=== PATIENT | male | born 1980 | race Caucasian/White ===

== ENCOUNTER 2019-10-19 11:28 | Observation (INO) | payer OTHER, SELFPAY ==
[2019-10-19] VITALS (10 sets, daily range): BP systolic 144–173; BP diastolic 83–104; PULSE 81–125; RESP 17–23; TEMP 36.6–36.8; O2SAT 93–98; BMI 35.2
--- NOTE | ~2019-10-19 | US_ITS ---
EXAMINATION: US scrotum doppler DATE: 10/20/2019 14:35 INDICATION: Right testicular swelling TECHNIQUE: Testicular sonogram utilizing grayscale and Doppler COMPARISON: None. FINDINGS: The right testis measures 5.4 x 2.5 x 3.7 cm. The left testis measures 5.2 x 2.1 x 4.0 cm. Symmetric normal grayscale appearance to both testes. There is normal vascular flow to both testes. 8 mm anecho ic right epididymal cyst. The right epididymis is normal with normal vascular flow. The left epididym is is normal with normal vascular flow. There is no varicocele or hydrocele. IMPRESSION: 1. 8 mm right epididymal cyst. Otherwise unremarkable testicular ultrasound. Reviewed, dictated and finalized at location A.
--- NOTE | ~2019-10-19 | CT_ITS ---
EXAMINATION: CTA chest PE protocol DATE: 10/19/2019 17:15 INDICATION: Chest pain. Tachycardia. Prior pulmonary embolism. TECHNIQUE: Computed tomography (CT) pulmonary angiogram of the chest was performed with 100 mL Omnipa que-350 intravenous contrast. Additional 3D reconstructions utilizing coronal maximum intensity proje ction (MIP) were performed. Automated exposure control and iterative reconstruction technique were em ployed. The dose-length product was 949.70 mGy-cm. COMPARISON: 12/20/2018 FINDINGS: Excellent contrast opacification of the pulmonary arteries. There is mild streak artifact from dense contrast in the superior vena cava and right atrium. Mild to moderate scattered respiratory motion ar tifact with basilar predominance which decreases sensitivity in the basilar segmental and subsegmenta l pulmonary arteries. No definite pulmonary embolism. No pneumonia, pulmonary edema, pleural effusion or pneumothorax. Borderline heart size. No pericardial or pleural effusion. Thoracic aorta is normal in caliber with no dissection. No pathologically enlarged thoracic lymphadenopathy. Diffuse hepatic steatosis. Bilateral adrenal adenomas, the larger on the left measuring 1.6 cm which are unchanged s mario CT dated 12/14/2017 at which time it demonstrated low-attenuation. Metallic anchor at the right g lenoid likely related to prior labral repair. IMPRESSION: 1. No definite pulmonary embolism. Sensitivity decreased in the basilar segmental and subsegmental pu lmonary arteries to primarily to motion. 2. Diffuse hepatic steatosis. Reviewed, dictated and finalized at location A. IMPRESSION: 1. No definite pulmonary embolism. Sensitivity decreased in the basilar segment al and subsegmental pulmonary arteries to primarily to motion. 2. Diffuse hepatic steatosis.
--- NOTE | ~2019-10-19 | XR_ITS ---
EXAMINATION: XR chest 2V 10/19/2019 13:01 INDICATION: Chest pain. Alcohol withdrawals. PROCEDURE: 2 view chest COMPARISON: No prior studies for comparison. FINDINGS: The lungs are clear. The cardiomediastinal silhouette is within normal limits. There are no pleural effusions. There is no pneumothorax suspected. IMPRESSION: 1: NO ACUTE CARDIOPULMONARY DISEASE. Reviewed, dictated and finalized at location A.
--- NOTE | 2019-10-19 11:34 | ECG_ITS ---
Measurements Intervals [place] Rate: 125 P: 53 NM: 153 QRS: 64 QRSD: 93 T: 13 QT: 402 QTc: 580 Interpretive Statements SINUS TACHYCARDIA DELAYED PRECORDIAL R/S TRANSITION BORDERLINE ST-T WAVE ABNORMALITY- ANT/INF LEADS ABNORMAL ECG Electronically Signed On 10-19-2019 14:52:12 CDT by Coleman Andersen D.O.
--- NOTE | 2019-10-19 12:15 | PC.NURSE ---
Pt refusing straight cath at this time.
[2019-10-19] MEDS: FAMOTIDINE 20 MG/2 ML VIAL IV PUSH (12:21)
[2019-10-19] MEDS: LORAZEPAM INJ 2 MG/ML VIAL 1 MG IV PUSH ×3 (12:21→19:58)
[2019-10-19 12:43] LABS: Basophils Absolute Auto 0.1 K/mm3 (0.0-0.1); Basophils Percent Auto 0.9 % (0.2-1.2); Eosinophils Percent Auto 0.3 % (0-4.4); Hematocrit 51.4 % (42.0-52.0); Hemoglobin 18.2 g/dL (14.0-18.0); Immature Granulocyte Absolute 0.03 K/mm3 (0.00-0.031); Immature Granulocyte Percent A 0.3 % (0-0.5); Lymphocytes Percent Auto 20.6 % (18.3-44.2); Mean Corpuscular HGB Conc 35.4 g/dl (32-36); Mean Corpuscular Hemoglobin 32.4 pg (26-34); Mean Corpuscular Volume 91.5 fl (80-100); Mean Platelet Volume 9.7 fl (7.4-10.4); Monocytes Absolute Auto 0.7 K/mm3 (0.1-0.6); Monocytes Percent Auto 6.6 % (2.6-8.5); Neutrophils Absolute Auto 7.6 K/mm3 (1.3-6.7); Neutrophils Percent Auto 71.3 % (45.5-73.1); Platelet Count Result 349 k/mm3 (150-375); Red Blood Count 5.62 M/mm3 (4.6-6.20); White Blood Count 10.7 K/mm3 (4.5-10.0)
[2019-10-19] MEDS: PROCHLORPERAZINE EDISYLATE 10 MG/2 ML VIAL IV PUSH (12:48)
[2019-10-19 12:55] LABS: Alanine Aminotransferase 241 U/L (4-50); Alkaline Phosphatase 90 U/L (38-126); Aspartate Amino Transferase 168 U/L (17-59); Bilirubin,Total 0.6 mg/dL (0.2-1.3); Blood Urea Nitrogen 5 mg/dL (9-20); Calcium 9.7 mg/dL (8.4-10.2); Carbon Dioxide 23 mmol/L (22-30); Chloride 98 mmol/L (98-107); Estimated CRCL calculation 166 ml/min; Estimated Glomerular Filt Rate > 60; Glucose 146 mg/dL (75-110); Lipase 102 U/L (23-300); Potassium 3.3 mmol/L (3.4-5.0); Sodium 141 mmol/L (137-145)
[2019-10-19 12:56] LABS: INR 1.1; Partial Thromboplastin Time 28.1 SECONDS (22.3-36.8); Prothrombin Time 13.8 Seconds (11.1-14.7)
[2019-10-19 13:07] LABS: Ethanol 167 mg/dL (<10); Troponin I < 0.012 ng/mL (0.000-0.034)
--- NOTE | 2019-10-19 13:26 | ED.CHESTPAIN ---
HPI - Chest Pain General Chief Complaint: Chest Pain Stated Complaint: Abdominal pain Time Seen by Provider: 10/19/19 12:11 Source: patient Mode of arrival: ambulatory Limitations: no limitations History of Present Illness HPI narrative: This is a 39-year-old male that presents the emergency department for withdrawal symptoms that started today. Reports he has had problems with alcohol for the last 10 years. Reports he goes out on benders. Reports over the last 5 days he has been drinking a pint of vodka daily. Reports this morning he started to have chest pain, nausea and vomiting. Also reports anxiety. Denies fever or cough. Related Data Home Medications Medication Instructions Recorded Confirmed lorazepam 0.5 mg PO BID PRN 10/19/19 sertraline [Zoloft] 150 mg PO DAILY 10/19/19 trazodone 100 mg PO HS 10/19/19 Allergies Allergy/AdvReac Type Severity Reaction Status Date / Time lisinopril Allergy Unknown Unknown Verified 10/19/19 12:39 quetiapine Allergy Unknown Unknown Verified 07/31/18 09:23 Review of Systems Review of Systems: Narrative: CONSTITUTIONAL: Denies fever CARDIOVASCULAR: Reports chest pain RESPIRATORY: Denies cough or dyspnea. GASTROINTESTINAL: Reports abdominal pain, nausea, vomiting All systems reviewed & are unremarkable except as noted in HPI and below PMFSH Past Medical History Medical History (Updated 10/19/19 @ 17:54 by Nelda Bear PA-C) History of alcohol abuse History of depression Family History Family History (Updated 11/26/15 @ 23:19 by DOCTOR UNKNOWN) Father Hypertension Family history of diabetes mellitus in first degree relative Social History Social History (Updated 10/19/19 @ 17:48 by Nelda Bear PA-C) Alcohol intake: current Substance use: never Gender identity (if verbalized by the patient): Male Exam Narrative: Exam Narrative: GENERAL: Well-appearing, obese, and in no acute distress. HEAD: Normocephalic, atraumatic. EYES: EOMI. ENT: Nares clear, no rhinorrhea or epistaxis. Mucous membranes moist. Oropharynx without tonsillar hypertrophy exudate or other lesions. Bilateral TMs pearly calderon non-bulging NECK: Supple. No adenopathy or masses. CHEST: Clear to auscultation. No respiratory distress. No wheezes rales or rhonchi HEART: Regular rate and rhythm. No murmur heard. Normal peripheral pulses. ABDOMEN: Soft, nontender, nondistended, normal active bowel sounds. EXTREMITIES: Normal range of motion. No edema. SKIN: Warm, dry, no rash. NEURO: No focal deficits. Alert and oriented x3. PSYCH: Anxious Course Consultations Consultation #1: Spoke with hospitalist about patient and work-up who accepts admission Date: 10/19/19 Time: : Vital Signs Vital signs: Vital Signs Temperature 98.2 F 10/19/19 12:36 Pulse Rate 125 H 10/19/19 12:36 Respiratory Rate 17 10/19/19 12:36 Blood Pressure 162/97 H 10/19/19 12:36 Pulse Oximetry 97 10/19/19 12:36 Temperature 98.2 F 10/19/19 12:36 Pulse Rate 98 10/19/19 17:27 Respiratory Rate 17 10/19/19 17:27 Blood Pressure 144/83 H 10/19/19 17:27 Pulse Oximetry 97 10/19/19 17:27 MDM - Chest Pain MDM Narrative Medical decision making narrative: Patient presents to the emergency department for alcohol withdrawal. Has been seen here for same in the past multiple times. Patient is afebrile and nontoxic-appearing. Tachycardic and hypertensive upon arrival. This improved with IV fluids and Ativan administration. CBC with mild leukocytosis with white blood cell count of 10.7. Also shows hemoconcentration. Metabolic panel with mild hypokalemia. Patient given a dose of potassium in the ED. Liver enzymes are also elevated, has history of this in the past. Does have fatty liver disease. Was reporting some chest discomfort which seems to be GERD. EKG without concerning ST changes. Baseline and 3-hour troponin is negative. Patient does have a prolonged QT on his EKG. D-dime
--- NOTE | 2019-10-19 13:48 | PC.NURSE ---
RN at bedside, pt snoring at this time.
--- NOTE | 2019-10-19 13:54 | PC.NURSE ---
RN notified MEAGHAN Diana that patient is snoring. OK to hold Ativan at this time.
[2019-10-19] MEDS: SODIUM CHLORIDE 0.9% IV 1,000 ML 999 ML IV CONT (14:56)
[2019-10-19 15:50] LABS: Add Urine Microscopic? YES; Appearance Urine Clear (Clear); Bilirubin Urine Negative (Negative); Blood Urine Negative (Negative); Color Urine Yellow (Yellow); Glucose Urine UA Negative (Negative); Ketones Urine 1+ mg/dL (Negative); Leukocyte Esterase Ur Negative LEU/UL (Negative); Mucus Urine Rare /lpf; Nitrate Urine Negative (Negative); Protein Urine Negative (Negative); RBC Urine 0-2 /hpf (0-2); Squamous Epithelial Cell Urine Rare /hpf (Few); Urobilinogen Urine Negative mg/dL (<2.0); WBC Urine 0-3 /hpf
[2019-10-19 15:56] LABS: Troponin I < 0.012 ng/mL (0.000-0.034)
[2019-10-19 16:04] LABS: Barbiturate Screen Urine Negative (Negative); Benzodiazepines Screen Urine Negative (Negative)
[2019-10-19 16:05] LABS: Amphetamine Screen Urine Negative (Negative); Cannabinoid Screen Urine Negative (Negative); Cocaine Screen Urine Negative (Negative); Methadone Screen Urine Negative (Negative); Opiate Screen Urine Negative (Negative); Phencyclidine Screen Urine Negative (Negative)
[2019-10-19] MEDS: POTASSIUM CHLORIDE 20 MEQ TABLET PO (16:24)
[2019-10-19 16:36] LABS: D Dimer 0.67 ug/mL (<0.48)
[2019-10-19] MEDS: CHLORDIAZEPOXIDE 25 MG CAPSULE PO (18:37)
[2019-10-19] MEDS: PANTOPRAZOLE SODIUM IV 40 MG VIAL IV PUSH (18:37)
[2019-10-19] MEDS: SODIUM CHLORIDE 0.9% IV 1,000 ML 125 ML IV CONT (18:38)
[2019-10-19 18:43] LABS: Troponin I < 0.012 ng/mL (0.000-0.034)
--- NOTE | 2019-10-19 19:31 | PM.IMHP ---
H&P: HPI History of Present Illness Chief complaint: Alcohol withdrawal Narrative: This is a morbidly obese 39 year old male with known depression who presented to the hospital with a complaint of alcohol withdrawal symptoms including anxiety, shakiness, nausea and vomiting. While in the ER he started to develope midsternal chest pain that lasted about 10 minutes in duration. He denied any associated symptoms with his chest pain. The patient has been drinking alcohol since he was a teenager but has had issues with binge drinking over the past ten years. He admits to binge drinking a pint of vodka daily over the past 5 days. He desires to stop drinking. Today he has been feeling very anxious and shaky. He reports diaphoresis, nausea and vomiting. He denies any visual or auditory hallucinations. He has never had a withdrawal seizure before. He denies any fevers, chills, cough, shortness of breath, abdominal pain, dysuria, hematuria, diarrhea or leg redness or pain. He believes he might have some leg swelling. The patient was evaluated in the ER and CTA chest was peformed and was negative for acute pulmonary embolism. We have been asked to admit the patient for alcohol withdrawal. No other complaints. Review of Systems Review of Systems: All systems reviewed & are unremarkable except as noted in HPI and below PMFSH Past Medical History Medical History (Updated 10/19/19 @ 21:02 by Christian Torres MD) History of alcohol abuse History of depression Surgical History Surgical History (Updated 10/19/19 @ 19:34 by Christian Torres MD) Hx of shoulder surgery Family History Family History (Updated 10/19/19 @ 19:36 by Anum Cunningham RN) Father Family history of diabetes mellitus in first degree relative Hypertension Mother Anxiety Social History Social History (Updated 10/19/19 @ 19:35 by Christian Torres MD) Smoking packs per day: 0.5 Smoking cigarettes per day: 10.0 Years smoked: 18 Smoking pack-years: 9.00 Smoking status: Current every day smoker Tobacco type: cigarettes Alcohol intake: current Drinks per week: 42 Substance use: never Gender identity (if verbalized by the patient): Male Spiritual care concerns: No Meds Home Medications and Allergies Home Medications Medication Instructions Recorded Confirmed Type lorazepam 0.5 mg PO BID PRN 10/19/19 10/19/19 History sertraline [Zoloft] 150 mg PO DAILY 10/19/19 10/19/19 History trazodone 100 mg PO HS 10/19/19 10/19/19 History Allergies Allergy/AdvReac Type Severity Reaction Status Date / Time lisinopril Allergy Unknown Unknown Verified 10/19/19 12:39 quetiapine Allergy Unknown Unknown Verified 07/31/18 09:23 Vital Signs Vital Signs - 24 hr 10/19/19 12:36 10/19/19 14:59 10/19/19 16:25 Temperature 36.8 C Pulse Rate 125 H 116 H 110 H Respiratory Rate 17 23 H 18 Blood Pressure 162/97 H 162/104 H 161/95 H Pulse Oximetry 97 93 95 10/19/19 17:27 10/19/19 18:56 Temperature Pulse Rate 98 107 H Respiratory Rate 17 20 Blood Pressure 144/83 H 173/86 H Pulse Oximetry 97 97 Exam Const: General: cooperative, alert, awake and in distress mild Nutritional Appearance: obese morbidly obese Orientation/consciousness: patient oriented x3 HENMT: Head: normal to inspection General nose exam: Normal external nose present Face and sinus: normal facial exam Mouth: Yes Normal oral and palatal mucosa present and Yes oropharynx normal Eyes: Pupils: Equal, round and reactive pupils present EOM: EOMs intact bilaterally Neck: Neck: supple and no JVD Thyroid: thyroid normal Lymphatic: lymphadenopathy not noted Resp: Effort & Inspection: normal respiratory effort Auscultation: clear to auscultation bilaterally Cardio: Rate: tachycardic Rhythm: regular rhythm Heart sounds: no murmurs GI: Inspection: normal to inspection and obesity GI Palp: No abdominal tenderness Auscultation: normal bowel sounds Rectal Exam
--- NOTE | 2019-10-19 19:41 | ADMGEN ---
This patient, Abram Rodriguez, was admitted to IMU Room 201-01 on 10/19/2019 at 1930. Patient/family oriented to hospital policies and general routines including ID bracelet, bed and alarms, visiting hours, pain management, procedures, bathroom and other care routines, personal items, smoking policy, room service/diet, and visiting hours. Valuables list has been completed. Information on how to activate the Rapid Response Team has been discussed. Patient/Family are encouraged to report perceived risks to care and to ask questions if they do not understand what they are told or what they should do.
[2019-10-20] VITALS (11 sets, daily range): BP systolic 115–176; BP diastolic 103–106; PULSE 69–117; RESP 12–20; TEMP 35.8–36.4; O2SAT 95–98
[2019-10-20] MEDS: CHLORDIAZEPOXIDE 25 MG CAPSULE PO ×3 (00:09→13:20)
[2019-10-20] MEDS: SODIUM CHLORIDE 0.9% IV 1,000 ML 125 ML IV CONT ×2 (03:51→09:40)
[2019-10-20] MEDS: LORAZEPAM INJ 2 MG/ML VIAL 1 MG IV PUSH ×3 (04:00→15:19)
[2019-10-20 04:51] LABS: Basophils Absolute Auto 0.1 K/mm3 (0.0-0.1); Basophils Percent Auto 1.2 % (0.2-1.2); Eosinophils Absolute Auto 0.1 K/mm3 (0-0.3); Eosinophils Percent Auto 1.8 % (0-4.4); Hematocrit 45.5 % (42.0-52.0); Hemoglobin 15.9 g/dL (14.0-18.0); Immature Granulocyte Absolute 0.01 K/mm3 (0.00-0.031); Immature Granulocyte Percent A 0.1 % (0-0.5); Lymphocytes Absolute Auto 3.16 K/mm3 (0.9-3.2); Lymphocytes Percent Auto 43.5 % (18.3-44.2); Mean Corpuscular HGB Conc 34.9 g/dl (32-36); Mean Corpuscular Hemoglobin 32.4 pg (26-34); Mean Corpuscular Volume 92.7 fl (80-100); Mean Platelet Volume 9.5 fl (7.4-10.4); Monocytes Absolute Auto 0.6 K/mm3 (0.1-0.6); Monocytes Percent Auto 8.1 % (2.6-8.5); Neutrophils Absolute Auto 3.3 K/mm3 (1.3-6.7); Neutrophils Percent Auto 45.3 % (45.5-73.1); Platelet Count Result 258 k/mm3 (150-375); Red Blood Count 4.91 M/mm3 (4.6-6.20); Red Cell Distribution Width 12.9 % (11.5-14.5); White Blood Count 7.3 K/mm3 (4.5-10.0)
[2019-10-20 05:03] LABS: Blood Urea Nitrogen 8 mg/dL (9-20); Calcium 8.9 mg/dL (8.4-10.2); Carbon Dioxide 26 mmol/L (22-30); Chloride 104 mmol/L (98-107); Estimated CRCL calculation 146 ml/min; Estimated Glomerular Filt Rate > 60; Glucose 121 mg/dL (75-110); Magnesium 2.4 mg/dL (1.6-2.3); Potassium 3.7 mmol/L (3.4-5.0); Sodium 137 mmol/L (137-145)
[2019-10-20] MEDS: THIAMINE HCL 200 MG/2 ML VIAL 100 MG IV PUSH (09:39)
--- NOTE | 2019-10-21 21:06 | PM.DS ---
DS: Admitting Diagnosis Admitting Diagnosis Admitting Diagnosis: Alcohol dependence with withdrawal, uncomplicated DS: Discharge Diagnosis Discharge Diagnosis (1) Alcohol withdrawal: Qualifiers: Complication of substance-induced condition: uncomplicated Qualified Code(s): F10.230 - Alcohol dependence with withdrawal, uncomplicated Code(s): F10.239 - Alcohol dependence with withdrawal, unspecified Status: Acute Assessment and Plan: l. Ativan withdrawal prophylaxis. Thiamine IV daily. Social service saw patient and gave him information on rehab which she had done in the distant past. he was tolerating a diet well and he had never had a history DTs or alcohol withdrawal seizures. Was discharged with 25 mg of Librium to take q.6 hours p.r.n. taper off and # 20. (2) Chest pain: Qualifiers: Chest pain type: unspecified Qualified Code(s): R07.9 - Chest pain, unspecified Code(s): R07.9 - Chest pain, unspecified Status: Acute Assessment and Plan: r/o ACS - chest pain was only 10 minutes in duration. Atypical and probably related to withdrawal syndrome. EKG no ischemic changes and troponins negative should follow-up with primary care for recheck on blood pressure (3) History of depression: Code(s): Z86.59 - Personal history of other mental and behavioral disorders Status: Chronic Assessment and Plan: continue home medication with Zoloft 150 daily and trazodone 100 HS (4) Elevated LFTs: Code(s): R79.89 - Other specified abnormal findings of blood chemistry Status: Acute Assessment and Plan: mild elevation of LFTs thought secondary to alcohol or fatty infiltration and should have repeat metabolic profile within 1 week off of alcohol DS: Summary Hospital Course Hospital Course: 39-year-old white male history of alcohol abuse and binge drinking presented to ER with some agitation and atypical chest pain. Admitted for observation. Hydrated and serial enzymes were negative. Seen by social service given information on alcohol rehab programs and discharge with 20 of the 25 mg Librium to taper as needed for withdrawal Time Spent with Patient Time attestation: Total time spent providing and/or coordinating discharge services: 35 minutes Exam Narrative: Exam Narrative: condition on discharge blood pressure 150/100 pulse is 100 afebrile saturating 95% on room air lungs clear cv rrr slight tachy abd soft and nontender Neuro alert pleasant and cooperative with no focal deficits Discharge Plan Discharge Attending physician on discharge: Ramon Ansari Consulting providers: Nelda Bear ; Christian Torres ; Sarthak Kendall ; Toney Alvarenga ; Coleman Andersen Discharging Clinician: Ramon Ansari Patient Disposition: Home, Self-Care Activity: as tolerated Diet: regular Discharge Instructions: RTW Thursday 10/26 Patient Instructions: Antibiotic Form, How to Stop Smoking (DC), Abuse of Alcohol (DC), Alcohol Withdrawal (DC) Stand Alone Forms: General Discharge Information Follow-up/Referrals: PHYSICIAN,BLADE BALANCER [Primary Care Provider] - 2 Weeks Discharge Medications: New chlordiazepoxide HCl 25 mg Capsule 25 mg PO Q6HR Qty: 20 RF: 0 Continued sertraline [Zoloft] 100 mg Tablet 150 mg PO DAILY RF: 0 trazodone 100 mg Tablet 100 mg PO HS RF: 0 Discontinued lorazepam 0.5 mg Tablet 0.5 mg PO BID PRN (Reason: Anxiety) RF: 0 Other Ambulatory Orders: Comprehensive Metabolic Panel (Routine) Timeframe: 20191027 Location: Determined by Patient Ordered By: Ramon Ansari Date of admission: 10/19/19 18:23 Primary Care Provider: PHYSICIAN,BLADE BALANCER Admitting Provider: Ricardo Meza Discharge Date/Time: 10/20/19 16:45 Attending physician on admission: Ramon Ansari Condition: Stable Quality VTE Prophylaxis VTE prophylaxis: mechanical ordered
== END 2019-10-20 16:45 | disposition home or self-care (01) ==
LOC: ANHED 17:54 → ANHIMU 18:30
PROVIDERS: Family Medicine; Physician Assistant; Admitting Provider Family Medicine; Emergency Provider Emergency Medicine; Visit Provider Internal Medicine
DX: F10.239 Alcohol dependence with withdrawal, unspecified (principal); Y90.6 Blood alcohol level of 120-199 mg/100 ml; R07.89 Other chest pain; F17.210 Nicotine dependence, cigarettes, uncomplicated; F32.9 Major depressive disorder, single episode, unspecified; R79.89 Other specified abnormal findings of blood chemistry; E66.9 Obesity, unspecified; Z68.35 Body mass index [BMI] 35.0-35.9, adult; N50.89 Other specified disorders of the male genital organs; Z79.899 Other long term (current) drug therapy
CPT/HCPCS: 36415; 71046; 71275; 76870; 80048; 80053; 80307; 81001; 83690; 83735; 84484; 85025; 85380; 85610; 85730; 93005; 93976; 96361; 96365; 96366; 96374; 96375; 96376; 99285; A9270; C9113; G0378; J0780; J2060; J3411; J3475; J7030; J7120; Q9967

== ENCOUNTER 2020-07-29 01:22 | Observation (INO) | payer MEDICAID, SELFPAY ==
[2020-07-29] VITALS (13 sets, daily range): BP systolic 130–183; BP diastolic 86–113; PULSE 87–135; RESP 15–23; TEMP 36.8–37.4; O2SAT 94–98; BMI 33.7
--- NOTE | 2020-07-29 01:30 | ED.ALCOHOL ---
HPI - Alcohol General Chief Complaint: Alcohol Stated Complaint: possible alcohol poisoning Time Seen by Provider: 07/29/20 01:30 History of Present Illness HPI narrative: History limited by alcohol intoxication. 40 yo w/ h/o alcohol abuse and with drawal presents to the ED with epigastric pain. He reports that he drank 4 bottles of vodka today and 4 yesterday. He has severe burning pain radiating into his chest. He says that he is dying from alcohol poisoning , but also says that he is in withdrawal. Related Data Home Medications Medication Instructions Recorded Confirmed sertraline [Zoloft] 150 mg PO DAILY 10/19/19 10/19/19 trazodone 100 mg PO HS 10/19/19 10/19/19 Allergies Allergy/AdvReac Type Severity Reaction Status Date / Time lisinopril Allergy Unknown Unknown Verified 07/29/20 01:39 quetiapine Allergy Unknown Unknown Verified 07/29/20 01:39 Review of Systems Review of Systems: All systems reviewed & are unremarkable except as noted in HPI and below Constitutional: Constitutional: Denies fever(s) ENT: Reports system reviewed and no additional complaints, except as documented Cardiovascular: Cardiovascular: Reports chest pain Respiratory: Respiratory: Denies dyspnea Gastrointestinal: Gastrointestinal: Reports abdominal pain and Reports nausea Neurologic: Reports system reviewed and no additional complaints, except as documented [facility] Past Medical History Medical History History of alcohol abuse History of depression Surgical History Surgical History Hx of shoulder surgery Family History Family History Father Family history of diabetes mellitus in first degree relative Hypertension Mother Anxiety Social History Social History Smoking packs per day: 0.5 Smoking cigarettes per day: 10.0 Years smoked: 18 Smoking pack-years: 9.00 Smoking status: Current every day smoker Tobacco type: cigarettes Alcohol intake: current Drinks per week: 42 Substance use: never Gender identity (if verbalized by the patient): Male Spiritual care concerns: No Exam Const: General: no acute distress and alert Nutritional Appearance: obese Orientation/consciousness: patient oriented x3 HENMT: Mouth: Yes dry mucous membranes Chest: Chest palpation & inspection: no tenderness Resp: Effort & Inspection: normal respiratory effort Auscultation: clear to auscultation bilaterally Cardio: Rate: tachycardic Rhythm: regular rhythm GI: Inspection: non-distended GI Palp: Yes Soft to palpation, Yes Tenderness to palpation present (GI) (epigastric) and No Guarding due to palpation present (GI) Skin: General skin exam: normal color Neuro: General: patient oriented x3, moves all extremities, no focal motor deficits and CN's II-XI intact bilaterally Speech: normal speech Extrem: General: normal to inspection Course Vital Signs Vital signs: Vital Signs Temperature 36.9 C 07/29/20 01:32 Pulse Rate 124 H 07/29/20 01:32 Respiratory Rate 20 07/29/20 01:32 Blood Pressure 138/96 H 07/29/20 01:32 Pulse Oximetry 97 07/29/20 01:32 Temperature 36.9 C 07/29/20 01:32 Pulse Rate 135 H 07/29/20 04:01 Respiratory Rate 18 07/29/20 04:01 Blood Pressure 152/89 H 07/29/20 04:01 Pulse Oximetry 98 07/29/20 04:01 MDM - Alcohol MDM Narrative Medical decision making narrative: 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 Lipase negative. Patient refused abdominal CT. CBC abnormal, most likely 2/2 concentration. Despite 3 liters of NS, pain medications, librium he is ersistently tachycardic. I will plan to admit for observation. Medical Records Attestation: I reviewed the patient's medical records. Lab Data Attestation: I reviewed the patient's
[2020-07-29] MEDS: PANTOPRAZOLE SODIUM IV 40 MG VIAL IV PUSH ×3 (02:05→20:09)
[2020-07-29] MEDS: ONDANSETRON INJ 4 MG/2 ML VIAL IV PUSH ×4 (02:07→20:30)
[2020-07-29] MEDS: LIDOCAINE HCL 2% VISC SOLN 15 ML UDC 20 ML PO (02:07)
[2020-07-29] MEDS: MAG HYDROX/AL HYDROX/SIMETH 30 ML UDC PO (02:07)
[2020-07-29] MEDS: SODIUM CHLORIDE 0.9% IV 1,000 ML 999 ML IV CONT (02:07)
[2020-07-29 02:17] LABS: Basophils Absolute Auto 0.1 K/mm3 (0.0-0.1); Basophils Percent Auto 0.6 % (0.2-1.2); Hematocrit 52.1 % (42.0-52.0); Hemoglobin 18.5 g/dL (14.0-18.0); Immature Granulocyte Absolute 0.07 K/mm3 (0.00-0.031); Immature Granulocyte Percent A 0.3 % (0-0.5); Lymphocytes Absolute Auto 2.92 K/mm3 (0.9-3.2); Lymphocytes Percent Auto 13.9 % (18.3-44.2); Mean Corpuscular HGB Conc 35.5 g/dl (32-36); Mean Corpuscular Hemoglobin 30.4 pg (26-34); Mean Corpuscular Volume 85.7 fl (80-100); Monocytes Absolute Auto 0.7 K/mm3 (0.1-0.6); Monocytes Percent Auto 3.2 % (2.6-8.5); Neutrophils Absolute Auto 17.2 K/mm3 (1.3-6.7); Platelet Count Result 354 k/mm3 (150-375); Red Blood Count 6.08 M/mm3 (4.6-6.20)
[2020-07-29 02:37] LABS: Alanine Aminotransferase 43 U/L (4-50); Albumin Level 4.8 g/dL (3.5-5.1); Alkaline Phosphatase 60 U/L (38-126); Anion Gap 17 mmol/L (8-16); Aspartate Amino Transferase 60 U/L (17-59); Bilirubin,Total 0.7 mg/dL (0.2-1.3); Blood Urea Nitrogen 19 mg/dL (9-20); Calcium 8.4 mg/dL (8.4-10.2); Carbon Dioxide 23 mmol/L (22-30); Chloride 102 mmol/L (98-107); Estimated CRCL calculation 106 ml/min; Estimated Glomerular Filt Rate > 60; Ethanol 164 mg/dL (<10); Glucose 110 mg/dL (75-110); Lipase 68 U/L (23-300); Potassium 3.9 mmol/L (3.4-5.0); Sodium 142 mmol/L (137-145)
[2020-07-29] MEDS: MORPHINE SULFATE (*CRX) 4 MG/ML INJ IV PUSH (02:39)
--- NOTE | 2020-07-29 02:39 | ECG_ITS ---
Measurements Intervals [place] Rate: 128 P: 13 NH: 162 QRS: 11 QRSD: 84 T: 54 QT: 319 QTc: 466 Interpretive Statements SINUS TACHYCARDIA DELAYED PRECORDIAL R/S TRANSITION BASELINE ARTIFACT- I, II, III, AVR, AVL ABNORMAL ECG Electronically Signed On 07-29-2020 7:15:08 CDT by Coleman Andersen D.O.
[2020-07-29] MEDS: chlordiazePOXIDE (*CRX) 25 MG CAPSULE PO ×2 (03:00→06:43)
[2020-07-29] MEDS: SODIUM CHLORIDE 0.9% IV 2,000 ML 999 ML IV CONT (03:49)
[2020-07-29 03:52] LABS: Troponin I < 0.012 ng/mL (0.000-0.034)
--- NOTE | 2020-07-29 04:02 | PC.NURSE ---
Pt frequently asking for a benzo or diazepam for his abd discomfort. Pt has had no vomiting during ED visit.
[2020-07-29] MEDS: PROMETHAZINE HCL 25 MG/ML AMPUL 12.5 MG IV PUSH (05:38)
--- NOTE | 2020-07-29 05:42 | PC.NURSE ---
0520 Pt starts to have some vomiting. EDP informed. Haldol is ordered. Medication taken to pt and he recalls he has an allergy to the medication. Phenergan is then ordered and given.
--- NOTE | 2020-07-29 06:26 | ADMIMU ---
This patient, Abram Rodriguez, was admitted to IMU status, and placed in Intensive Care Unit-1. Patient/family oriented to hospital policies and general routines including ID bracelet, bed and alarms, visiting hours, pain management, procedures, bathroom and other care routines, personal items, smoking policy, room service/diet, and visiting hours. Valuables list has been completed. Information on how to activate the Rapid Response Team has been discussed. Patient/Family are encouraged to report perceived risks to care and to ask questions if they do not understand what they are told or what they should do.
[2020-07-29] MEDS: LORazepam INJ (*CRX) 2 MG/ML VIAL 1 MG IV PUSH ×6 (07:52→22:07)
[2020-07-29] MEDS: LACTATED RINGERS 1,000 ML 125 ML IV CONT ×2 (08:13→16:02)
[2020-07-29] MEDS: THIAMINE HCL INJ 100 MG, FOLIC ACID INJ 1 MG, MULTIVITAMINS-12 INJ VIAL 1 5 ML, MULTIVI... 125 MG IV CONT (08:13)
--- NOTE | 2020-07-29 10:28 | PM.IMHP ---
H&P: HPI History of Present Illness Date/Time: 07/29/20 10:28 PATIENT IS IN OBSERVATION STATUS Chief Complaint: I wanted to stop drinking Narrative: 40-year-old male history of alcoholism, depression and hypertension who presents to the emergency room intoxicated with desire to stop drinking. Patient states ?I am an alcoholic?. He has been drinking heavily since age 23. He has never had a withdrawal seizure that he is aware of but has woken up with blood in his mouth at times. When he stops drinking, he gets tremors but has never had hallucinations. Did attend alcohol rehab about 2-3 years ago. Normally drinks 1.5 to 2 pt of vodka a day when he drinks. His longest sobriety was 6 months that ended just recently. He states that he had issues at work and with an ex-girlfriend. He had been sober for 6 months but began to drink on July 26. He was drinking up to 4 pt of vodka a day the past few days. No oral intake. On the evening prior to admission he developed nausea and vomiting. He is having dry heaves. He had an episode of hematemesis at home but has not had that here. He has had nausea vomiting since admission that is been mostly bilious. He states his urine output has been poor over the past few days and has not voided since being here. He also has burning in his chest as well as chest and abdominal pain that is constant. This is been since arrival. He has had this discomfort before but usually controlled with alcohol. He denies any history of drug use. No DUIs. He is self-employed. He has been out of his sertraline, Crestor and HCTZ for the past few weeks. Patient was inebriated on admission. He states to me this morning that he presented to the emergency room because he wanted to stop drinking. In the Emergency room, he was tachycardic at 135. He was hypertensive. He was given Haldol once and Librium once. Was started on Protonix. Zofran and Phenergan given. Mylanta and lidocaine given for his stomach. He was admitted for further care. Patient feels better today. Does have odynophagia but no dysphagia. Denies any recent fever chills. No vision changes. No recent dysuria or hematuria. He feels weak all over but no numbness or tingling in his extremities. No history of strokes. He has noted his weight has increased since he is drinking. His mood has been stable and he denies any suicidal homicidal ideation. He does feel anxious today. Review of Systems Review of Systems: All systems reviewed & are unremarkable except as noted in HPI and below PMFSH Past Medical History Medical History (Updated 08/01/20 @ 13:25 by Larry Johnson MD) Essential hypertension, benign History of alcohol abuse History of depression Hyperlipidemia Surgical History Surgical History Hx of shoulder surgery Family History Family History Father Family history of diabetes mellitus in first degree relative Hypertension Acute myocardial infarction, Onset Age: 38 Mother Anxiety Social History Social History Social History: Alcohol use as mentioned above. No history of drug use. Smokes a pack a cigarettes per week. He lives alone. He is a full code. He nominated his mom Vinnie Garibay to be the individual would make medical decisions for him if he is unable. He is self-employed Smoking packs per day: 1 Smoking cigarettes per day: 20.0 Years smoked: 2,001 Smoking pack-years: 2001.00 Smoking status: Current some day smoker Tobacco type: cigarettes Alcohol intake: current Drinks per week: 42 Substance use: never Gender identity (if verbalized by the patient): Male Sexual Orientation (if Verbalized by the Patient): Straight or Heterosexual Spiritual care concerns: No Meds Home Medications and Allergies Home Medications
[2020-07-29] MEDS: FOLIC ACID 1 MG/0.2 ML INJ IV PUSH (11:08)
[2020-07-29] MEDS: chlordiazePOXIDE (*CRX) 25 MG CAPSULE 50 MG PO ×2 (11:22→18:48)
[2020-07-29] MEDS: METOPROLOL TARTRATE 12.5 MG TABLET PO ×2 (13:49→20:09)
[2020-07-29] MEDS: THIAMINE HCL 200 MG/2 ML VIAL 100 MG IV PUSH (13:50)
[2020-07-29] MEDS: SUCRALFATE SUSP 100 MG/ML 10 ML UDC 1000 MG PO ×3 (13:50→20:10)
[2020-07-30] VITALS (15 sets, daily range): BP systolic 121–145; BP diastolic 69–101; PULSE 68–118; RESP 14–22; TEMP 36.3–37.1; O2SAT 92–99
[2020-07-30] MEDS: LACTATED RINGERS 1,000 ML 125 ML IV CONT ×4 (00:05→20:54)
[2020-07-30] MEDS: chlordiazePOXIDE (*CRX) 25 MG CAPSULE 50 MG PO ×4 (00:06→17:53)
[2020-07-30] MEDS: LORazepam INJ (*CRX) 2 MG/ML VIAL 1 MG IV PUSH ×10 (00:07→22:25)
[2020-07-30] MEDS: ONDANSETRON INJ 4 MG/2 ML VIAL IV PUSH ×6 (04:01→20:58)
[2020-07-30 04:20] LABS: Basophils Absolute Auto 0.1 K/mm3 (0.0-0.1); Basophils Percent Auto 0.9 % (0.2-1.2); Eosinophils Absolute Auto 0.1 K/mm3 (0-0.3); Eosinophils Percent Auto 0.5 % (0-4.4); Hematocrit 42.6 % (42.0-52.0); Hemoglobin 14.9 g/dL (14.0-18.0); Immature Granulocyte Absolute 0.02 K/mm3 (0.00-0.031); Immature Granulocyte Percent A 0.2 % (0-0.5); Lymphocytes Absolute Auto 4.17 K/mm3 (0.9-3.2); Lymphocytes Percent Auto 45.3 % (18.3-44.2); Mean Corpuscular Hemoglobin 30.8 pg (26-34); Mean Platelet Volume 9.4 fl (7.4-10.4); Monocytes Absolute Auto 0.7 K/mm3 (0.1-0.6); Monocytes Percent Auto 7.4 % (2.6-8.5); Neutrophils Absolute Auto 4.2 K/mm3 (1.3-6.7); Neutrophils Percent Auto 45.7 % (45.5-73.1); Platelet Count Result 202 k/mm3 (150-375); Red Blood Count 4.84 M/mm3 (4.6-6.20); Red Cell Distribution Width 12.7 % (11.5-14.5); White Blood Count 9.2 K/mm3 (4.5-10.0)
[2020-07-30 04:29] LABS: Ammonia < 9 umol/L (9-30)
[2020-07-30 04:32] LABS: Partial Thromboplastin Time 30.2 SECONDS (22.3-36.8); Prothrombin Time 14.2 Seconds (11.1-14.7)
[2020-07-30 04:34] LABS: Alanine Aminotransferase 35 U/L (4-50); Albumin Level 3.8 g/dL (3.5-5.1); Alkaline Phosphatase 40 U/L (38-126); Anion Gap 5 mmol/L (8-16); Aspartate Amino Transferase 55 U/L (17-59); Bilirubin,Total 1.7 mg/dL (0.2-1.3); Blood Urea Nitrogen 12 mg/dL (9-20); Calcium 8.1 mg/dL (8.4-10.2); Carbon Dioxide 31 mmol/L (22-30); Chloride 106 mmol/L (98-107); Estimated CRCL calculation 105 ml/min; Estimated Glomerular Filt Rate > 60; Glucose 93 mg/dL (75-110); Lipase 97 U/L (23-300); Potassium 3.6 mmol/L (3.4-5.0); Sodium 142 mmol/L (137-145)
[2020-07-30] MEDS: SUCRALFATE SUSP 100 MG/ML 10 ML UDC 1000 MG PO ×4 (06:07→20:30)
[2020-07-30] MEDS: PANTOPRAZOLE SODIUM IV 40 MG VIAL IV PUSH ×2 (08:07→20:30)
[2020-07-30] MEDS: FOLIC ACID 1 MG/0.2 ML INJ IV PUSH (08:08)
[2020-07-30] MEDS: THIAMINE HCL 200 MG/2 ML VIAL 100 MG IV PUSH (08:08)
[2020-07-30] MEDS: MULTIVITAMINS THERAPEUTIC TAB (*BKC) 1 TABLET PO (08:08)
[2020-07-30] MEDS: METOPROLOL TARTRATE 12.5 MG TABLET PO ×2 (08:08→20:30)
--- NOTE | 2020-07-30 15:13 | PC.NURSE ---
This patient, Abram Rodriguez, was received from ICU 1 on 07/30/20 at 1513. Patient/family oriented to unit policies and routines. Report received from DAVID Mendez.
--- NOTE | 2020-07-30 15:24 | PC.NURSE ---
Patient downgraded to medical status, sent to [phone] via wheelchair and fluids restarted in room, report given to DAVID Spaulding at [phone]
--- NOTE | 2020-07-30 17:59 | PM.IMPN ---
Progress Note: A&P Assessment and Plan (1) Alcohol withdrawal: Qualifiers: Complication of substance-induced condition: uncomplicated Qualified Code(s): F10.230 - Alcohol dependence with withdrawal, uncomplicated Code(s): F10.239 - Alcohol dependence with withdrawal, unspecified Status: Acute Assessment and Plan: Patient currently on Librium 50 mg q.6 hours and appears much calmer. CIWA 3-9 range today. Still taking the Ativan regularly every 2-3 hours. Monitor closely for worsening withdrawal symptoms. Hold medications if he becomes somnolent. Continue Thiamine and folate. Decrease IV fluids. Continue to monitor with CIWA (2) Alcohol abuse: Code(s): F10.10 - Alcohol abuse, uncomplicated Status: Acute Assessment and Plan: Patient has long history of alcohol abuse. He was intoxicated on admission. AST elevation noted probably related to the alcohol. He was educated about the benefits abstain from alcohol use. AST normal now and coags normal. Continue Thiamine, folate and multivitamin. Social work to provide information about alcohol rehab. (3) Epigastric pain: Code(s): R10.13 - Epigastric pain Status: Acute Assessment and Plan: Lipase normal. LFTs essentially normal. Suspect patient has alcoholic gastritis. Hgb stable. Continue Protonix and Carafate. Monitor H&H. Continue Ful liquid diet for now. (4) Essential hypertension, benign: Code(s): I10 - Essential (primary) hypertension Status: Acute Assessment and Plan: BP was elevated felt related to his untreated HTN and from his withdrawal so metoprolol added. Holding HCTZ. BP better controlled. (5) History of depression: Code(s): Z86.59 - Personal history of other mental and behavioral disorders Status: Chronic Assessment and Plan: Mood better. Continue Zoloft. (6) Tobacco abuse: Code(s): Z72.0 - Tobacco use Status: Acute Assessment and Plan: Patient was educated about the benefits of abstain from tobacco use. (7) DVT prophylaxis: Code(s): Z29.9 - Encounter for prophylactic measures, unspecified Status: Acute Assessment and Plan: SCDs Subjective Date/time seen: 07/30/20 17:59 Interval history: 40yo male with hx of alcoholism here for alcohol withdrawal. Patient slept off and on. Nausea but no emesis. Still not tolerating oral intake well. Abd pain is better. Still with odynophagia. Taking ativan regularly per RN. Still with tremors but no hallucinations. Exam Narrative: Exam Narrative: AF 97.4 128/86 118 20 99% ra Gen - NARD Chest - CTA bilat, nml RR CV - RRR S1/S2; Tele showing no significant dysrhythmias Abd - soft, NT/ND, +BS Ext - no pedal edema. 2+ DP pulses bilaterally. Neuro - patient is alert and appropriate. no tremors Psych - nml mood and affect Skin - warm and dry. No diaphoresis Objective Data Vital Signs Vital Signs: Vital Signs - 24 hr 07/29/20 20:00 07/29/20 20:09 07/29/20 22:00 Temperature 98.3 F Pulse Rate 89 87 93 Pulse Rate [Monitor] 88 Respiratory Rate 23 H Blood Pressure 140/86 Pulse Oximetry 96 07/30/20 00:00 07/30/20 02:00 07/30/20 04:00 Temperature 97.4 F L 97.4 F L Pulse Rate 76 79 77 Pulse Rate [Monitor] 76 77 Respiratory Rate 14 22 H Blood Pressure 139/92 H 140/99 H Pulse Oximetry 99 96 07/30/20 06:00 07/30/20 07:58 07/30/20 08:00 Temperature 98.8 F Pulse Rate 72 75 75 Pulse Rate [Monitor] 83 Respiratory Rate 15 16 Blood Pressure 121/78 Pulse Oximetry 97 97 07/30/20 08:08 07/30/20 09:17 07/30/20 09:49 Temperature Pulse Rate 73 75 Pulse Rate [Monitor] Respiratory Rate Blood Pressure Pulse Oximetry 97 07/30/20 11:20 07/30/20 12:00 07/30/20 15:15 Temperature 97.4 F L Pulse Rate 76 80 88 Pulse Rate [Monitor] 85 Respiratory Rate 14 18 20 Blood Pressu
[2020-07-30] MEDS: LORazepam INJ (*CRX) 2 MG/ML VIAL 0.5 MG IV PUSH (23:44)
[2020-07-31] VITALS (7 sets, daily range): BP systolic 118–147; BP diastolic 66–87; PULSE 71–88; RESP 18; TEMP 36.2–36.8; O2SAT 95–98
[2020-07-31] MEDS: LORazepam INJ (*CRX) 2 MG/ML VIAL 1 MG IV PUSH (00:33)
[2020-07-31] MEDS: chlordiazePOXIDE (*CRX) 25 MG CAPSULE 50 MG PO ×5 (00:33→23:23)
[2020-07-31] MEDS: SUCRALFATE SUSP 100 MG/ML 10 ML UDC 1000 MG PO ×4 (05:52→20:10)
[2020-07-31] MEDS: LACTATED RINGERS 1,000 ML 100 ML IV CONT ×2 (05:57→17:04)
[2020-07-31 06:32] LABS: Basophils Absolute Auto 0.1 K/mm3 (0.0-0.1); Basophils Percent Auto 0.8 % (0.2-1.2); Eosinophils Absolute Auto 0.2 K/mm3 (0-0.3); Eosinophils Percent Auto 2.1 % (0-4.4); Hematocrit 42.6 % (42.0-52.0); Hemoglobin 14.8 g/dL (14.0-18.0); Immature Granulocyte Absolute 0.01 K/mm3 (0.00-0.031); Immature Granulocyte Percent A 0.1 % (0-0.5); Lymphocytes Absolute Auto 3.47 K/mm3 (0.9-3.2); Mean Corpuscular HGB Conc 34.7 g/dl (32-36); Mean Corpuscular Hemoglobin 30.4 pg (26-34); Mean Corpuscular Volume 87.5 fl (80-100); Mean Platelet Volume 9.9 fl (7.4-10.4); Monocytes Absolute Auto 0.6 K/mm3 (0.1-0.6); Monocytes Percent Auto 8.3 % (2.6-8.5); Neutrophils Absolute Auto 3.2 K/mm3 (1.3-6.7); Neutrophils Percent Auto 42.7 % (45.5-73.1); Platelet Count Result 177 k/mm3 (150-375); Red Blood Count 4.87 M/mm3 (4.6-6.20); Red Cell Distribution Width 12.4 % (11.5-14.5); White Blood Count 7.6 K/mm3 (4.5-10.0)
[2020-07-31 06:41] LABS: Albumin Level 3.7 g/dL (3.5-5.1); Anion Gap 5 mmol/L (8-16); Blood Urea Nitrogen 11 mg/dL (9-20); Calcium 8.5 mg/dL (8.4-10.2); Carbon Dioxide 29 mmol/L (22-30); Chloride 107 mmol/L (98-107); Estimated CRCL calculation 107 ml/min; Estimated Glomerular Filt Rate > 60; Glucose 93 mg/dL (75-110); Phosphorus 4.4 mg/dL (2.5-4.5); Potassium 3.4 mmol/L (3.4-5.0); Sodium 141 mmol/L (137-145)
[2020-07-31] MEDS: SERTRALINE HCL 50 MG TABLET 150 MG PO (08:46)
[2020-07-31] MEDS: METOPROLOL TARTRATE 12.5 MG TABLET PO ×2 (08:46→20:10)
[2020-07-31] MEDS: THIAMINE HCL 200 MG/2 ML VIAL 100 MG IV PUSH (08:47)
[2020-07-31] MEDS: MULTIVITAMINS THERAPEUTIC TAB (*BKC) 1 TABLET PO (08:47)
[2020-07-31] MEDS: PANTOPRAZOLE SODIUM IV 40 MG VIAL IV PUSH ×2 (08:48→20:10)
[2020-07-31] MEDS: POTASSIUM CHLORIDE 20 MEQ TABLET PO (08:48)
--- NOTE | 2020-07-31 10:33 | PM.IMPN ---
Progress Note: A&P Assessment and Plan (1) Alcohol withdrawal: Qualifiers: Complication of substance-induced condition: uncomplicated Qualified Code(s): F10.230 - Alcohol dependence with withdrawal, uncomplicated Code(s): F10.239 - Alcohol dependence with withdrawal, unspecified Status: Acute Assessment and Plan: Patient currently on Librium 50 mg q.6 hours and appears much calmer. CIWA 1-10 range past 24hours (except for score up to 14 once). Still taking the Ativan regularly every 2-4 hours. Monitor closely for worsening withdrawal symptoms. Hold medications if he becomes somnolent. Continue Thiamine and folate. Decrease IV fluids again. Continue to monitor with CIWA. Decrease Ativan frequency. (2) Alcohol abuse: Code(s): F10.10 - Alcohol abuse, uncomplicated Status: Acute Assessment and Plan: Patient has long history of alcohol abuse. He was intoxicated on admission. AST elevation noted probably related to the alcohol. He was educated about the benefits abstain from alcohol use. AST normal now and coags normal. Continue Thiamine, folate and multivitamin. Social provided information about alcohol rehab. (3) Epigastric pain: Code(s): R10.13 - Epigastric pain Status: Acute Assessment and Plan: Lipase normal. LFTs essentially normal. Suspect patient has alcoholic gastritis. Hgb stable. Continue Protonix and Carafate. Monitor H&H. Continue Ful liquid diet for now. (4) Essential hypertension, benign: Code(s): I10 - Essential (primary) hypertension Status: Acute Assessment and Plan: BP was elevated felt related to his untreated HTN and from his withdrawal so metoprolol added. Holding HCTZ. BP better controlled. (5) History of depression: Code(s): Z86.59 - Personal history of other mental and behavioral disorders Status: Chronic Assessment and Plan: Mood better. Continue Zoloft. (6) Tobacco abuse: Code(s): Z72.0 - Tobacco use Status: Acute Assessment and Plan: Patient was educated about the benefits of abstain from tobacco use. (7) DVT prophylaxis: Code(s): Z29.9 - Encounter for prophylactic measures, unspecified Status: Acute Assessment and Plan: SCDs Subjective Date/time seen: 07/31/20 10:33 Interval history: 40yo male with hx of alcoholism here for alcohol withdrawal. Patient slept better last night. Good UOP. No tremors or hallucinations. Not eating much per patient. Did not eat breakfast or lunch but did eat 100% of full liquid dinner. Later he told the RN that he did not sleep well and needed his trazadone resumed. Exam Narrative: Exam Narrative: AF 98.2 123/66 78 18 95% ra Gen - NARD Chest - CTA bilat, nml RR CV - RRR S1/S2 Abd - soft, NT/ND, +BS Ext - no pedal edema. Neuro - patient is alert and appropriate. no tremors Psych - nml mood and affect Skin - warm and dry. No diaphoresis Objective Data Vital Signs Vital Signs: Vital Signs - 24 hr 07/30/20 11:20 07/30/20 12:00 07/30/20 15:15 Temperature 97.4 F L Pulse Rate 76 80 88 Pulse Rate [Monitor] 85 Respiratory Rate 14 18 20 Blood Pressure 132/69 128/86 Pulse Oximetry 92 94 99 07/30/20 16:00 07/30/20 20:30 07/30/20 22:00 Temperature 97.4 F L Pulse Rate 68 95 Pulse Rate [Monitor] 118 H Respiratory Rate 20 Blood Pressure 145/101 H Pulse Oximetry 98 07/31/20 06:00 07/31/20 08:46 07/31/20 10:00 Temperature 97.2 F L 98.2 F Pulse Rate 84 80 78 Pulse Rate [Monitor] Respiratory Rate 18 18 Blood Pressure 118/71 123/66 Pulse Oximetry 98 95 Intake/Output Intake/Output: Intake & Output 07/28/20 07/29/20 07/30/20 07/31/20 23:59 23:59 23:59 23:59 Intake Total 4000 4990 1550 Output Total 1300 3900 2200 Balance 2700 1090 -650 Meds/Results Medications: Active Medications Generic Name Dose Route S
[2020-07-31] MEDS: FOLIC ACID 1 MG/0.2 ML INJ IV PUSH (11:41)
[2020-07-31] MEDS: ONDANSETRON INJ 4 MG/2 ML VIAL IV PUSH (11:49)
[2020-07-31] MEDS: ACETAMINOPHEN 325 MG TABLET 650 MG PO (18:10)
--- NOTE | 2020-07-31 18:27 | PC.NURSE ---
Throughout the shift today, the pt has alternated his statements from my stomach hurts; it's killing me to my stomach doesn't hurt at all; it's just hungry'. Originally, he said he couldn't eat. He had asked for zofran and vanilla pudding. He received both. Around noon he called for emesis bags. Dr. Johnson put in an order for an upper GI series. Pt then he stated if he could eat that he would feel better. Called Dr. Johnson who ordered a low fat diet. At one point, pt stated that Dr. Johnson had told him that treatment for the pain in his stomach is the ativan. Call placed to Dr. Johnson to verify as the dose order reads withdrawal . Dr. Johnson reiterated that no, his ativan is only for withdrawal symptoms. Informed pt who was okay with this. Pt called later to state he needed medication for his stomach and that he may want to leave. I let him know that I had tylenol for him, and I let him know it would be against medical advice if he left. He said that tylenol would be great, and that he will stay after all. Pt wanted to know when his next dose of his medications would be. I let him know that he had just received his 1800 dose of librium. He was confused, but when I reminded him, he did recall it. He is now requesting more of the crystal light as he says it helps his gastric pain. Ordered several glasses to keep on the floor for the patient tonight.
[2020-07-31] MEDS: traZODone HCL 25 MG TABLET PO (20:46)
[2020-07-31] MEDS: MELATONIN 3 MG TABLET PO (23:48)
[2020-08-01] VITALS: BP 125/78; BP 133/76; PULSE 71; PULSE 80; RESP 18; TEMP 36.6; O2SAT 97
[2020-08-01 04:00] VITALS: BP 110/69; PULSE 70; RESP 18; TEMP 36.2; O2SAT 96
[2020-08-01] MEDS: chlordiazePOXIDE (*CRX) 25 MG CAPSULE 50 MG PO (05:55)
[2020-08-01] MEDS: SUCRALFATE SUSP 100 MG/ML 10 ML UDC 1000 MG PO ×2 (05:55→13:10)
[2020-08-01] MEDS: LACTATED RINGERS 1,000 ML 100 ML IV CONT (06:01)
[2020-08-01 08:00] VITALS: BP 131/75; PULSE 70; RESP 20; TEMP 36.7; O2SAT 95
[2020-08-01 08:35] VITALS: PULSE 84
[2020-08-01] MEDS: FOLIC ACID 1 MG TABLET PO (08:35)
[2020-08-01] MEDS: MULTIVITAMINS THERAPEUTIC TAB (*BKC) 1 TABLET PO (08:35)
[2020-08-01] MEDS: METOPROLOL TARTRATE 12.5 MG TABLET PO (08:35)
[2020-08-01] MEDS: THIAMINE HCL 100 MG TABLET PO (08:35)
[2020-08-01] MEDS: PANTOPRAZOLE SODIUM IV 40 MG VIAL IV PUSH (08:36)
[2020-08-01] MEDS: SERTRALINE HCL 50 MG TABLET 150 MG PO (08:40)
[2020-08-01 12:00] VITALS: BP 124/87; PULSE 80; RESP 18; TEMP 36.3; O2SAT 97
[2020-08-01] MEDS: chlordiazePOXIDE (*CRX) 25 MG CAPSULE PO (13:10)
--- NOTE | 2020-08-01 13:21 | PM.DS ---
DS: Admitting Diagnosis Admitting Diagnosis Admitting Diagnosis: Abdominal pain and alcohol intoxication DS: Discharge Diagnosis Discharge Diagnosis (1) Alcohol withdrawal: Qualifiers: Complication of substance-induced condition: uncomplicated Qualified Code(s): F10.230 - Alcohol dependence with withdrawal, uncomplicated Code(s): F10.239 - Alcohol dependence with withdrawal, unspecified Status: Acute Assessment and Plan: Patient treated with Librium and dose increased to 50 mg q.6 hours and appeared much calmer. We had Ativan available as needed as well. He was monitored closely with [facility] protocol. He had clinical improvement. He was able to be discharged home on Librium taper. (2) Alcohol abuse: Code(s): F10.10 - Alcohol abuse, uncomplicated Status: Acute Assessment and Plan: Patient has long history of alcohol abuse. He was intoxicated on admission. AST elevation noted probably related to the alcohol. He was educated about the benefits of abstaining from alcohol use. AST normal now and coags normal. He was started on Thiamine, folate and multivitamin. Social work provided information about alcohol rehab. (3) Alcohol intoxication: Code(s): F10.929 - Alcohol use, unspecified with intoxication, unspecified Status: Acute Assessment and Plan: Alcohol level was 164 on admission. Treatment as above. (4) Epigastric pain: Code(s): R10.13 - Epigastric pain Status: Acute Assessment and Plan: Lipase normal. LFTs essentially normal. Suspect patient has alcoholic gastritis. Hgb stable. He was treated with Protonix and Carafate with good results. Diet started and advanced as he tolerated. Abd pain resolved. (5) Essential hypertension, benign: Code(s): I10 - Essential (primary) hypertension Status: Acute Assessment and Plan: BP was elevated felt related to his untreated HTN and from his withdrawal so metoprolol added. We held his HCTZ. BP better controlled. Continue Metoprolol at discharge. (6) History of depression: Code(s): Z86.59 - Personal history of other mental and behavioral disorders Status: Chronic Assessment and Plan: Mood remained stable. We continued his Zoloft. (7) Tobacco abuse: Code(s): Z72.0 - Tobacco use Status: Acute Assessment and Plan: Patient was educated about the benefits of tobacco cessation. DS: Summary Hospital Course Reason for hospitalization: 10yo male with hx of alcoholism here for alcohol withdrawal. Please see H&P for details. Hospital Course: Please see above for details of hospital course. Status at Discharge Cognitive/behavioral status at discharge: Stable Time Spent with Patient Time attestation: Total time spent providing and/or coordinating discharge services: 38 minutes Time spent: Greater than 30 minutes Exam Narrative: Exam Narrative: AF 97.4 124/87 80 18 97% ra Gen - NARD Chest - CTA bilat, nml RR CV - RRR S1/S2 Abd - soft, NT/ND, +BS Ext - no pedal edema. Neuro - patient is alert and appropriate. no tremors Psych - nml mood and affect Skin - warm and dry. No diaphoresis Discharge Plan Discharge Attending physician on discharge: Larry Johnson Consulting providers: Vidya Wynne Discharging Clinician: Larry Johnson Anticipated Discharge Date/Time: 08/01/20 13:32 Patient Disposition: Home, Self-Care Activity: as tolerated Diet: heart healthy and bland Discharge Instructions: Please avoid large gathering, wear face coverings in public and practice social distance. Take precautions to avoid falls. Rise slowly from a lying or sitting position. Pause before standing or walking. Contact your doctor or come to the Emergency Room if you have tremors or other worrisome symptoms. Avoid NSAIDs (ibuprofen, naproxen, Aleve). Tylenol is safe to take. Fo
--- NOTE | 2020-08-01 19:15 | PC.NURSE ---
Patient called this ICU asking for clarification on medications prescribed at discharge. Patient also concerned with not being able to afford Carafate. Referred to Care Coordination.
== END 2020-08-01 15:55 | disposition home or self-care (01) ==
LOC: ANHED 05:49 → ANHICU 05:58 → ANH3MEDSUR 07-30 15:24
PROVIDERS: Admitting Provider Family Medicine; Emergency Provider Emergency Medicine; PCP Physician Assistant; Visit Provider Internal Medicine
DX: F10.230 Alcohol dependence with withdrawal, uncomplicated (principal); F10.220 Alcohol dependence with intoxication, uncomplicated; R10.13 Epigastric pain; I10 Essential (primary) hypertension; F32.9 Major depressive disorder, single episode, unspecified; F17.210 Nicotine dependence, cigarettes, uncomplicated; R00.0 Tachycardia, unspecified; R11.2 Nausea with vomiting, unspecified; E78.5 Hyperlipidemia, unspecified
CPT/HCPCS: 36415; 80053; 80069; 80307; 82140; 83690; 83735; 84443; 84484; 85025; 85610; 85730; 93005; 96361; 96374; 96375; 96376; 99285; A9270; C9113; G0378; J2060; J2270; J2405; J2550; J3411; J3475; J7030; J7120